=== PATIENT | female | born 1945 | race African-American/Black ===

== ENCOUNTER 2020-04-07 10:21 | Outpatient (CLI) | payer MEDICARE, OTHER ==
--- NOTE | 2020-04-07 12:58 | RAD ---
TWO VIEW CHEST: 04/07/20 HISTORY: Dyspnea. No comparison. The lungs appear well aerated and clear. No infiltrate identified. Heart size upper normal and vascul arity is upper normal; however, no evidence of significant congestion or edema. Osseous structures un remarkable. IMPRESSION: No acute process. POS: [facility]
== END 2020-04-07 10:22 | disposition home or self-care (01) ==
LOC: RAD 10:21
PROVIDERS: ATTEND Internal Medicine Critical Care Medicine
DX: R06.00 Dyspnea, unspecified (principal)
CPT/HCPCS: 71046

== ENCOUNTER 2020-04-21 08:57 | Outpatient (CLI) | payer MEDICARE, OTHER | END 2020-04-21 08:58 | disposition home or self-care (01) | LOC: SLEEPLAB 08:57 | PROVIDERS: ATTEND Internal Medicine Critical Care Medicine | DX: G47.33 Obstructive sleep apnea (adult) (pediatric) (principal); I10 Essential (primary) hypertension | CPT/HCPCS: 95806 ==

== ENCOUNTER 2020-05-30 19:30 | Outpatient (CLI) | payer MEDICARE, OTHER | END 2020-05-30 19:31 | disposition home or self-care (01) | LOC: SLEEPLAB 19:30 | PROVIDERS: ATTEND Internal Medicine Critical Care Medicine | DX: G47.33 Obstructive sleep apnea (adult) (pediatric) (principal); I10 Essential (primary) hypertension; G47.10 Hypersomnia, unspecified; E66.9 Obesity, unspecified; Z68.41 Body mass index [BMI] 40.0-44.9, adult | CPT/HCPCS: 95811 ==